=== PATIENT | female | born 1955 | race African-American/Black ===

== ENCOUNTER 2023-02-16 23:09 | Emergency (ER) | payer MEDICARE, MEDICAID ==
[~2023-02-16] VITALS: Ht 167.6 cm; Wt 75.0 kg
[2023-02-16 23:12] VITALS: O2SAT 96
[2023-02-16] MEDS ORDERED: ONDANSETRON HCL 4MG/2ML INJ IV STA (23:16)
[2023-02-16] MEDS ORDERED: KETOROLAC 30MG/ML VIAL IV STA (23:16)
[2023-02-17 02:47] LABS: BASOPHILS % 0.3 % (0.0-2.0); EOSINOPHILS % 2.3 % (0.0-5.0); HEMATOCRIT. 44.5 % (36.0-48.0); LYMPHOCYTES % 41.2 % (20.0-50.0); MEAN CORPUSCULAR HEMOGLOBIN 28.9 pg (28.0-32.0); MEAN CORPUSCULAR HGB CONC 33.6 g/dL (31.0-37.0); MEAN CORPUSCULAR VOLUME 85.9 fL (81.0-99.0); MEAN PLATELET VOLUME 7.2 fl (7.4-10.4); MONOCYTES % 3.8 % (2.0-8.0); NEUTROPHILS % 52.4 % (40.0-76.0); PLATELET 396 x1000/uL (130-400); RED BLOOD CELL COUNT 5.19 mill/uL (4.2-5.4); RED CELL DISTRIBUTION WIDTH 16.6 % (11.6-14.6); WHITE BLOOD COUNT 6.5 x1000/uL (4.5-11.0)
[2023-02-17 02:57] LABS: PROTHROMBIN TIME 10.4 sec (9.6-11.0)
[2023-02-17 03:53] LABS: CHLORIDE 112 mEq/L (98-107); INDEX HEMOLYSI 1 (1-3); INDEX ICTERIC 1 (1-4); INDEX LIPEMIC 1 (1-3); POTASSIUM 3.7 mEq/L (3.5-5.1); SODIUM 143 mEq/L (136-145)
[2023-02-17 04:04] LABS: ALANINE AMINOTRANSFERASE 27 IU/L (13-61); ALBUMIN 3.5 g/dL (3.4-5.0); ASPARTATE AMINOTRANSFERASE 13 IU/L (15-37); BILIRUBIN TOTAL 0.2 mg/dL (0.1-1.0); CALCIUM 8.7 mg/dL (8.5-10.1); CARBON DIOXIDE 24 mEq/L (21-32); CREATININE 0.7 mg/dL (0.6-1.3); ETHANOL BLOOD 185 mg/dL (-10); GLUCOSE 98 mg/dL (70-105); PROTEIN TOTAL 7.5 g/dL (6.0-8.3); TROPONIN I HIGH SENSITIVITY 5 ng/L (<54); UREA NITROGEN BLOOD 6 mg/dL (7-21)
[2023-02-17] MEDS ORDERED: FAMO-135 MT (05:33)
[2023-02-17] MEDS ORDERED: IOHEXOL-300 100 ML BOTTLE ONE (06:06)
[2023-02-17 08:40] VITALS: BP 119/63; PULSE 80; RESP 16; TEMP 98.6
== END 2023-02-17 09:06 | disposition home or self-care (01) ==
LOC: ER 02-17 00:14
DX: F10.129 Alcohol abuse with intoxication, unspecified (principal); K29.70 Gastritis, unspecified, without bleeding; K80.50 Calculus of bile duct without cholangitis or cholecystitis without obstruction; J45.909 Unspecified asthma, uncomplicated; Z90.49 Acquired absence of other specified parts of digestive tract; Y90.6 Blood alcohol level of 120-199 mg/100 ml
CPT/HCPCS: 71045; 80053; 80320; 83690; 85025; 85610; 84484; 36415; 74177; 99285; Q9967; Z7610; G0480